=== PATIENT | female | born 1980 | race Hispanic/Latino ===

== ENCOUNTER 2023-05-16 14:10 | Emergency (ER) | payer SELFPAY ==
[2023-05-16 15:01] LABS: Clarity Hazy (Clear); Specific Gravity, Urine 1.019 (1.002-1.036)
[2023-05-16 15:05] LABS: CAUTI Indications for Culture Pelvic or flank pain; WBC/HPF 21-50 HPF (0-3)
[2023-05-16 15:06] LABS: Bacteria/HPF 1+ HPF (None Seen); Squamous Epithelial 0-3 HPF (0-3); Transitional Epithelial 0-3 HPF (None Seen)
[2023-05-16 15:07] LABS: Urine Culture Reflex Yes Yes
[2023-05-16] MEDS ORDERED: cefTRIAXone (ROCEPHIN) 1 GM VIAL ONE (15:18)
[2023-05-17 00:03] LABS: Chlamydia by PCR, Vaginal Swab Not Detected (NotDetected); GC by PCR, Vaginal Swab Not Detected (NotDetected)
== END 2023-05-16 17:18 | disposition home or self-care (01) ==
LOC: NAV ERS 14:10
DX: N39.0 Urinary tract infection, site not specified (principal); E11.9 Type 2 diabetes mellitus without complications; Z79.84 Long term (current) use of oral hypoglycemic drugs
CPT/HCPCS: 81001; 87077; 87086; 87186; 87480; 87491; 87510; 87591; 87660; 96372; 99283; J0696